=== PATIENT | male | born 1970 | race Caucasian/White ===

== ENCOUNTER 2019-08-06 18:43 | Emergency (ER) | payer OTHER ==
[2019-08-07 00:18] VITALS: BP 0/0
--- NOTE | 2019-08-07 00:43 | ED ---
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 Patient claims that since his 20s, he has been dealing with white oil drainage from his eyes, nose, ears, and multiple orifices of his head and neck. He states that, when he was younger, he thought his Sx were just pimples. Patient reports that he was not evaluated for his described illness until 2017. In the past few years, he claims that his oil drainage has increased and been more persistent. Patient describes himself as a healthy individual, stating that he exercises, has eaten healthily during his life, and has not engaged in substance usage. He states that he has been chronically sleep deprived due to the persistent drainage. Patient has tried multiple medications to alleviate his Sx. He states that amitriptyline, klonopin, and xanax have provided relief to his Sx. Patient specifically requests a xanax and klonopin refill. This was declined. He denies anxiety. Patient states that he has lost communication with his family and has been homeless for the past several years. He states that he has been living at [facility] in recent years. Patient also claims that he has been malnourished and has not been able to get appropriate nourishment from the food that he can obtain with the food stamps that he is allotted. He states that he wants DSS disability forms signed so he can get the appropriate resources to obtain better nourishment. This was declined and patient was informed that he would need a PCP to sign this paperwork. Patient is followed by [facility]. He states that he is also concerned for cystoid tumors at his frontal head and would like imaging done to confirm this. Imaging options were discussed, patient is agreeable with Brain CT. 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 Home medications and allergies are reviewed. - History Of Current Complaint Chief Complaint: EDEyeProblem Time Seen by Provider: 08/06/19 23:43 Hx Obtained From: Patient Onset/Duration: Lasting Weeks, Still Present Timing: Constant, Weeks Aggravating Factor(s): nothing Alleviating Factor(s): nothing Associated Signs And Symptoms: Positive: Other - positive - white oil drainage, sleep deprivation, malnourishment; negative - anxiety - Allergies/Home Medications Allergies/Adverse Reactions: Allergies Allergy/AdvReac Type Severity Reaction Status Date / Time No Known Allergies Allergy Verified 08/06/19 18:53 PMH/Surg Hx/FS Hx/Imm Hx Sensory History: Denies: Hx Legally Blind, Hx Deafness Opthamlomology History: Denies: Hx Legally Blind EENT History: Denies: Hx Deafness Infectious Disease History: No Infectious Disease History: Denies: Traveled Outside the [place] in Last 30 Days - Family History Known Family History: Positive: Other - FMHx of alcohol consumption, mother - Social History Alcohol Use: None Substance Use Type: Reports: None Smoking Status (MU): Never Smoked Tobacco Review of Systems Constitutional: Other - positive - sleep deprivation, malnourishment, white oil drainage Negative: Anxious All Other Systems Reviewed And Are Negative: Yes Physical Exam - Summary Physical Exam Summary: General: Well-developed, Tall, Thin Male. No acute distress. HEENT: Normocephalic, Atraumatic. Eyes: Thick, Purulent Drainage from both eyes; Conjuctiva normal, PERRL. Neuro: Alert and oriented x3, no focal deficits. Psychiatric: Mildly agitated, pacing, odd affect Triage Information Reviewed: Yes Vital Signs On Initial Exam: Initial Vitals Temp Pulse Resp BP Pulse Ox 98.7 F 73 19 172/110 92 08/06/19 18:47 08/06/19 18:47 08/06/19 18:47 08/06/19 18:47 08/06/19 18:47 Vital Signs Reviewed: Yes Procedures - Sedation Patient Received Moderate/Deep Sedation with Procedure: No Diagnostics - Vital Signs Vital Signs Temp Pulse Resp BP Pulse Ox 08/06/19 21:45 99.0 F 76 16 157/99 95 08/06/19 18:47 98.7 F 73 19 172/110 92 - Laboratory Lab Statement: Any lab studies that have been ordered have been reviewed, and results considered in the medical decision making process. Re-Evaluation - Re-Evaluation First Eval Re-Evaluation Time: 00:11 Comment: Patient reported to nurse that he has changed his mind about receiving CT. He is upset that he was not prescribed Xanax or Klonopin. Patient eloped from ED. Complex Multi-Symp Course/Dx Course Of Treatment: 49-year-old male presents with complaints of oil drainage from his eyes and other places on his head neck and trunk. For years. 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 He states the only thing that is ever helped it through the years he's had this has been Xanax or Klonopin. He has been prescribed these but has run out. He requests prescription. I explained that I cannot fill chronic medications that are controlled. Patient moderately agitated at this time. He declined offer to see sacrum. Anxiety states is an anxious person. He did agree to a CAT scan of the head to rule out the cyst is concerned about. But then after I left the room he changed his mind and told the nurse she didn't want the CAT scan. He then eloped. - Diagnoses Provider Diagnoses: Eye drainage Discharge ED - Sign-Out/Discharge Documenting (check all that apply): Patient Departure - elopement - Discharge Plan Condition: Stable Disposition: ELOPEMENT Referrals: No Primary Care Phys,NOPCP [Primary Care Provider] - - Billing Disposition and Condition Condition: STABLE Disposition: Elopement - Attestation Statements Document Initiated by Scribe: Yes Documenting Scribe: SUSAN MARSHALL Provider For Whom [place] is Documenting (Include Credential): LISA BECKMAN MD Scribe Attestation: ISUSAN, scribed for LISA BECKMAN MD on 08/07/19 at 0539. Scribe Documentation Reviewed: Yes Provider Attestation: The documentation as recorded by the SUSAN mccauley accurately reflects the service I personally performed and the decisions made by me, LISA BECKMAN MD Status of Scribe Document: Viewed
== END 2019-08-07 00:16 | disposition left against medical advice (07) ==
LOC: ED 18:43
DX: H57.89 Other specified disorders of eye and adnexa (principal)
CPT/HCPCS: 99282